=== PATIENT | male | born 1970 | race Caucasian/White ===

== ENCOUNTER 2023-11-16 23:09 | Emergency (ER) | payer SELFPAY ==
[~2023-11-16] VITALS: Ht 177.8 cm; Wt 81.8 kg
[2023-11-16 23:39] LABS: BASO # 0.03 K/mm3 (0.02-0.10); EOS # 0.24 K/mm3 (0.04-0.40); EOS % 4.1 % (0.0-4.0); HEMATOCRIT 44.3 % (42.0-52.0); HEMOGLOBIN 14.7 g/dL (13.5-18.0); MEAN CELL VOLUME 89 fl (78-100); MEAN CORPUSCULAR HEMOGLOBIN 30 pg (27-31); MEAN CORPUSCULAR HGB CONC 33 g/dL (33-37); MEAN PLATELET VOLUME 9.3 fl (7.4-10.4); MONO # 0.56 K/mm3 (0.20-0.80); NEU # 3.37 K/mm3 (1.40-6.50); PLATELET COUNT 228 K/mm3 (130-400); RED BLOOD COUNT 4.96 M/mm3 (4.20-5.60); RED CELL DISTRIBUTION WIDTH 12.3 % (11.5-14.5); WHITE BLOOD COUNT 5.9 K/mm3 (4.8-10.8)
[2023-11-16 23:45] LABS: ALBUMIN 4.2 g/dL (3.5-5.0)
[2023-11-16 23:46] LABS: CALCIUM 9.1 mg/dL (8.3-10.5)
[2023-11-16 23:47] LABS: TOTAL PROTEIN 6.8 g/dL (6.4-8.3)
[2023-11-16 23:51] LABS: TOTAL BILIRUBIN 0.6 mg/dL (0.2-1.2)
[2023-11-16 23:51] LABS: URINE APPEARANCE TURBID (CLEAR); URINE BILIRUBIN NEGATIVE (NEGATIVE); URINE COLOR YELLOW (YELLOW); URINE GLUCOSE NEGATIVE (NEGATIVE); URINE KETONE NEGATIVE (NEGATIVE); URINE PROTEIN(semi-quant) 1+ (NEGATIVE)
[2023-11-16 23:52] LABS: URINE BLOOD 2+ (NEGATIVE); URINE LEUKOCYTE ESTERASE 3+ (NEGATIVE); URINE NITRATE POSITIVE (NEGATIVE); URINE WBC 31-50 /hpf (0-3)
[2023-11-17] MEDS ORDERED: BACTRIM DS TAB1 EACH PO (00:07)
[2023-11-17 00:20] VITALS: BP 132/64
== END 2023-11-17 00:20 | disposition home or self-care (01) ==
LOC: ED 23:09
PROVIDERS: Physician Assistant
DX: N39.0 Urinary tract infection, site not specified (principal)
CPT/HCPCS: J0696